=== PATIENT | female | born 1960 ===

== ENCOUNTER 2018-06-28 20:54 | Emergency (ER) | payer OTHER, SELFPAY ==
--- NOTE | 2018-06-28 21:28 | C.PDOC ---
History Of Present Illness 58 year old female with Hx of HTN and depression presents today with anxiety. Around 7:00pm Patient was told her nephew of a sudden heart attack, she then began having chest pain and pressure which lasted 30 minutes. Pain resolved on its own. She denies taking any medications for the pain and notes no complaints other than anxiety currently. Denies SOB, Hx of blood clots, recent surgery, suicidal ideation, homicidal ideation, hallucinations, or suicide attempt. Time Seen by Provider: 06/28/18 21:28 Chief Complaint (Nursing): Anxiety History Per: Patient History/Exam Limitations: no limitations Onset/Duration Of Symptoms: Hrs Current Symptoms Are (Timing): Gone Suicide/Self Injury Attempted (Context): None Modifying Factor(s): None Involuntary Hold By: None Recent travel outside of the [place]: No Past Medical History Reviewed: Historical Data, Nursing Documentation, Vital Signs Vital Signs: Last Vital Signs Temp 98.6 F 06/28/18 20:56 Pulse 128 H 06/28/18 20:56 Resp 22 06/28/18 20:56 BP 153/100 H 06/28/18 20:56 Pulse Ox 100 06/28/18 20:56 - Medical History PMH: Asthma Family History: States: Hypertension - Social History Hx Tobacco Use: No Hx Alcohol Use: No Hx Substance Use: No - Immunization History Hx Tetanus Toxoid Vaccination: No Hx Influenza Vaccination: No Hx Pneumococcal Vaccination: No Review Of Systems Constitutional: Negative for: Fever, Chills Eyes: Negative for: Pain, Vision Change ENT: Negative for: Ear Pain Cardiovascular: Negative for: Chest Pain, Palpitations Respiratory: Negative for: Cough, Shortness of Breath Gastrointestinal: Negative for: Nausea, Vomiting, Diarrhea Genitourinary: Negative for: Dysuria, Hematuria Psych: Positive for: Anxiety. Negative for: Suicidal ideation, Other (Homicidal ideation) Physical Exam - Physical Exam Appears: Well, Non-toxic, No Acute Distress, Other (Anxious) Skin: Normal Color, Warm, Dry Head: Atraumatic, Normacephalic Eye(s): bilateral: Normal Inspection, PERRL, EOMI Ear(s): Bilateral: Normal Nose: Normal Oral Mucosa: Moist Tongue: Normal Appearing Lips: Normal Appearing Teeth: Normal Dentition Gingiva: Normal Appearing Throat: Normal, No Erythema, No Exudate Neck: Normal, Normal ROM, Supple, Other (no meningeal signs) Chest: Symmetrical, No Tenderness Cardiovascular: Rhythm Regular Respiratory: Normal Breath Sounds, No Rales, No Rhonchi, No Wheezing Gastrointestinal/Abdominal: Normal Exam, Soft, No Tenderness Back: Normal Inspection, No CVA Tenderness, No Vertebral Tenderness Extremity: Normal ROM, No Pedal Edema, No Swelling Neurological/Psych: Oriented x3, Normal Speech, Normal Cognition, Normal Motor Gait: Steady ED Course And Treatment O2 Sat by Pulse Oximetry: 100 (Room air) Pulse Ox Interpretation: Normal Against Medical Advice - AMA Patient Left Against Medical Advice: The patient declines admission to the hospital and wishes to leave the Emergency Department. This action is against my medical advice. This decision was made with informed refusal. The patient was told that further lab work is necessary. Explanation of the reasons why were discussed. The risks of leaving were explained to the patient and include, but are not limited to, worsening of known or currently unknown conditions, permanent disability and from undiagnosed or untreated conditions. The patient has the capacity to make this informed decision and understands my explanation of the current medical problem and risks of leaving. The patient voluntarily accepts these risks and signed an AMA form documenting our conversation. The patient was given the opportunity to ask questions and reconsider. The patient was encouraged to return to the Emergency Department at any time for further care. Medical Decision Making Medical Decision Makin58 year old female p/w chest pain after hearing of nephews . Likely acute stress reaction, however given age, RF of HTN and chest pain will likely need serial trops, xrays. Pt may have taktsubos vs ACS. Patient refuses all labs and EKG, only wants psych evaluation. I informed the risks of chest pain that is not evaluated including and disability. Pt notes understanding of risk and seeks to sign out AMA once she is cleared by psych. Normal neuro exam, no meningeal signs and pt with capacity. Patient cleared by crisis, will sign out AMA. Disposition - Disposition Disposition: AGAINST MEDICAL ADVICE Disposition Time: 22:41 Condition: STABLE Forms: [facility] ([facility]) - Clinical Impression Clinical Impression: Acute stress reaction, Chest pain - Scribe Statement The provider has reviewed the documentation as recorded by the Scribe Ivan Zimmerman All medical record entries made by the Scribe were at my direction and personally dictated by me. I have reviewed the chart and agree that the record accurately reflects my personal performance of the history, physical exam, medical decision making, and the department course for this patient. I have also personally directed, reviewed, and agree with the discharge instructions and disposition.
[2018-06-28 22:39] VITALS: BP 136/84; PULSE 80; RESP 20; TEMP 97.7
[2018-06-28 22:42] VITALS: O2SAT 100
== END 2018-06-28 22:45 | disposition left against medical advice (07) ==
LOC: C.ER 20:54
DX: F43.0 Acute stress reaction (principal); R07.9 Chest pain, unspecified; I10 Essential (primary) hypertension